=== PATIENT | female | born 1990 | race Caucasian/White ===

== ENCOUNTER 2016-10-06 03:47 | Emergency (ER) | payer OTHER ==
[~2016-10-06] VITALS: Ht 170.2 cm; Wt 106.4 kg
[~2016-10-06 03:47] MED LIST: ACCOLATE20 MG; ACETTAB3 OR; FLEET ENEMA RE; IMPLANON68 MG SC; MAG CITRATE PO; MIRALAX3350 N1 PO; NO; NO HOME MEDS; OVRAL OR; PENICILLN VK500 MG OR; SM GLYCERIN1.5 GM RE; ULTRAM50 M1 PO; [UNRECOGNIZED DRUG - OTHER] OR
[2016-10-06] MEDS ORDERED: NAPROSYN500 MG PO (08:07)
[2016-10-06 08:21] VITALS: BP 134/86
== END 2016-10-06 08:25 | disposition home or self-care (01) | DRG 74 ==
LOC: ED 03:47
DX: G62.9 Polyneuropathy, unspecified (principal)

== ENCOUNTER 2017-06-09 17:11 | Emergency (ER) | payer OTHER ==
[~2017-06-09] VITALS: Ht 170.2 cm; Wt 100.0 kg
[~2017-06-09 17:11] MED LIST changes: +NAPROSYN500 MG PO
[2017-06-09] MEDS ORDERED: ZOFRAN ODT4 MG PO (18:02)
[2017-06-09] MEDS ORDERED: TRAMADOL HYDROC50 MG PO (18:02)
[2017-06-09] MEDS ORDERED: AUGMENTIN875TAB PO (18:07)
[2017-06-09] MEDS ORDERED: FLONASE AL50 MCG/ACT (18:07)
[2017-06-09 18:20] VITALS: BP 141/97
== END 2017-06-09 18:24 | disposition home or self-care (01) | DRG 153 ==
LOC: ED 17:11
DX: J01.20 Acute ethmoidal sinusitis, unspecified (principal); R11.0 Nausea; R42 Dizziness and giddiness; R51 Headache

== ENCOUNTER 2017-07-19 06:57 | Emergency (ER) | payer MEDICAID ==
[~2017-07-19] VITALS: Ht 170.2 cm; Wt 100.0 kg
[~2017-07-19 06:57] MED LIST changes: +AUGMENTIN875TAB PO; +FLONASE AL50 MCG/ACT; +TRAMADOL HYDROC50 MG PO; +ZOFRAN ODT4 MG PO
[2017-07-19 07:51] LABS: INFLUENZA A NONE DETECTED (NONE DETECT); INFLUENZA B POSITIVE (NONE DETECT)
[2017-07-19] MEDS ORDERED: TAM75CAP PO ×2 (07:58→17:19)
[2017-07-19 08:02] VITALS: BP 122/73
== END 2017-07-19 08:10 | disposition home or self-care (01) | DRG 153 ==
LOC: ED 06:57
PROVIDERS: Emergency Medicine
DX: J11.1 Influenza due to unidentified influenza virus with other respiratory manifestations (principal); J02.9 Acute pharyngitis, unspecified; R09.81 Nasal congestion

== ENCOUNTER 2017-12-02 16:14 | Emergency (ER) | payer OTHER ==
[~2017-12-02] VITALS: Ht 170.2 cm; Wt 100.0 kg
[~2017-12-02 16:14] MED LIST changes: +TAM75CAP PO
[2017-12-02] MEDS ORDERED: CIPROFLOXACN0.3 % OD (17:07)
[2017-12-02 17:10] VITALS: BP 139/84
== END 2017-12-02 17:10 | disposition home or self-care (01) | DRG 125 ==
LOC: ED 16:14
DX: S05.01XA Injury of conjunctiva and corneal abrasion without foreign body, right eye, initial encounter (principal); W50.0XXA Accidental hit or strike by another person, initial encounter; Y93.F9 Activity, other caregiving; Y92.009 Unspecified place in unspecified non-institutional (private) residence as the place of occurrence of the external cause

== ENCOUNTER 2018-01-08 06:09 | Emergency (ER) | payer OTHER ==
[~2018-01-08] VITALS: Ht 170.2 cm; Wt 106.4 kg
[~2018-01-08 06:09] MED LIST changes: +CIPROFLOXACN0.3 % OD
[2018-01-08] MEDS ORDERED: ULTRAM50 M1 PO (06:45)
[2018-01-08] MEDS ORDERED: FLEXERIL PO (06:45)
[2018-01-08 06:59] VITALS: BP 125/78
== END 2018-01-08 07:09 | disposition home or self-care (01) | DRG 563 ==
LOC: ED 06:09
DX: S83.92XA Sprain of unspecified site of left knee, initial encounter (principal); M25.562 Pain in left knee

== ENCOUNTER 2018-07-17 10:12 | Emergency (ER) | payer SELFPAY ==
[~2018-07-17] VITALS: Ht 170.2 cm; Wt 104.2 kg
[~2018-07-17 10:12] MED LIST changes: +FLEXERIL PO
[2018-07-17] MEDS ORDERED: AUGMENTIN875TAB PO (11:48)
[2018-07-17] MEDS ORDERED: OFLOXACIN0.3 % OD (11:48)
[2018-07-17 11:52] VITALS: BP 130/80
== END 2018-07-17 12:01 | disposition home or self-care (01) | DRG 125 ==
LOC: ED 10:12
DX: S05.01XA Injury of conjunctiva and corneal abrasion without foreign body, right eye, initial encounter (principal); W55.03XA Scratched by cat, initial encounter

== ENCOUNTER 2018-09-05 07:23 | Emergency (ER) | payer MEDICAID ==
[~2018-09-05] VITALS: Ht 170.2 cm; Wt 100.0 kg
[~2018-09-05 07:23] MED LIST changes: +OFLOXACIN0.3 % OD
[2018-09-05] MEDS ORDERED: AMOXICILLIN500 MG PO (08:32)
[2018-09-05] MEDS ORDERED: TORADOL PO (08:32)
[2018-09-05 08:48] VITALS: BP 114/68
== END 2018-09-05 08:52 | disposition home or self-care (01) ==
LOC: ED 07:23
DX: J02.0 Streptococcal pharyngitis (principal)

== ENCOUNTER 2018-09-08 14:00 | Emergency (ER) | payer MEDICAID ==
[~2018-09-08] VITALS: Ht 170.2 cm; Wt 100.0 kg
[~2018-09-08 14:00] MED LIST changes: +AMOXICILLIN500 MG PO; +TORADOL PO
[2018-09-08] MEDS ORDERED: AUGMENTIN875TAB PO (15:08)
[2018-09-08 15:17] VITALS: BP 145/92
== END 2018-09-08 15:20 | disposition home or self-care (01) ==
LOC: ED 14:00
DX: J02.0 Streptococcal pharyngitis (principal); J32.9 Chronic sinusitis, unspecified; R09.81 Nasal congestion; R51 Headache

== ENCOUNTER 2018-09-22 03:38 | Emergency (ER) | payer MEDICAID ==
[~2018-09-22] VITALS: Ht 170.2 cm; Wt 100.0 kg
[2018-09-22 04:35] LABS: HEMATOCRIT 43.7 % (37.0-47.0); HEMOGLOBIN 14.9 g/dl (12.0-16.0); IMMATURE GRANULOCYTES 0.3 % (0.0-5.0); MEAN CELL VOLUME 84.5 fL CALC (80.0-100.0); MEAN CORPUSCULAR HGB 28.8 pG CALC (26.0-32.0); MEAN CORPUSCULAR HGB CONC 34.1 g/L CALC (32.0-36.0); NEUT# 3.04 thou/uL (2.00-7.15); RED BLOOD COUNT 5.17 mill/uL (4.20-5.60); RED CELL DISTRI WIDTH 12.9 % (11.5-15.5)
[2018-09-22 04:43] LABS: ALBUMIN 4.2 g/dL (3.2-5.0); ALKALINE PHOSPHATASE 89 u/l (38-126); ANION GAP 14 (6-22 (CALC)); BILIRUBIN, TOTAL 0.5 mg/dL (0.0-1.4); BUN 16 mg/dL (7-17); BUN/CREATININE RATIO 21 (12-20 (CALC)); CARBON DIOXIDE 24 mmol/l (22-30); CHLORIDE 105 mmol/l (95-108); CREATININE 0.8 mg/dL (0.5-1.0); GFR > 60 ML/MIN (>=60 (CALC)); GFR FOR AFR.AMER. > 60 ML/MIN (>=60 (CALC)); POTASSIUM 4.2 mmol/l (3.5-5.1); SGOT/AST 20 u/l (14-36); SODIUM 138 mmol/l (137-146)
[2018-09-22] MEDS ORDERED: ANUCORT-HC25 MG RE (06:11)
[2018-09-22] MEDS ORDERED: COLACE100 MG PO (06:15)
[2018-09-22 06:20] VITALS: BP 120/70
== END 2018-09-22 06:20 | disposition home or self-care (01) ==
LOC: ED 03:38
PROVIDERS: Emergency Medicine
DX: K92.1 Melena (principal)

== ENCOUNTER 2020-03-31 08:47 | Emergency (ER) | payer OTHER ==
[~2020-03-31] VITALS: Ht 170.2 cm; Wt 110.0 kg
[~2020-03-31 08:47] MED LIST changes: +ANUCORT-HC25 MG RE; +COLACE100 MG PO
[2020-03-31 09:32] LABS: HEMATOCRIT 43.9 % (37.0-47.0); HEMOGLOBIN 14.4 g/dl (12.0-16.0); IMMATURE GRANULOCYTES 0.4 % (0.0-5.0); MEAN CELL VOLUME 85.9 fL CALC (80.0-100.0); MEAN CORPUSCULAR HGB 28.2 pG CALC (26.0-32.0); MEAN CORPUSCULAR HGB CONC 32.8 g/dL CAL (32.0-36.0); NEUT# 3.25 thou/uL (2.00-7.15); RED BLOOD COUNT 5.11 mill/uL (4.20-5.60); RED CELL DISTRI WIDTH 12.6 % (11.5-15.5)
[2020-03-31 09:47] LABS: ALBUMIN 4.3 g/dL (3.2-5.0); ALKALINE PHOSPHATASE 80 u/l (38-126); ANION GAP 11 (6-22 (CALC)); BUN 11 mg/dL (7-17); BUN/CREATININE RATIO 13 (12-20 (CALC)); CARBON DIOXIDE 24 mmol/l (22-30); CHLORIDE 104 mmol/l (95-108); CREATININE 0.8 mg/dL (0.5-1.0); GFR > 60 ML/MIN (>=60 (CALC)); GFR FOR AFR.AMER. > 60 ML/MIN (>=60 (CALC)); POTASSIUM 4.3 mmol/l (3.5-5.1); SGOT/AST 25 u/l (14-36); SODIUM 136 mmol/l (137-146); TOTAL PROTEIN 6.9 g/dL (6.3-8.2)
[2020-03-31 09:51] LABS: BILIRUBIN, TOTAL 0.9 mg/dL (0.0-1.4)
[2020-03-31] MEDS ORDERED: AMOXICILLIN500 MG PO (11:18)
[2020-03-31 11:22] VITALS: BP 137/68
== END 2020-03-31 11:33 | disposition home or self-care (01) ==
LOC: ED 08:47
PROVIDERS: Emergency Medicine
DX: J02.0 Streptococcal pharyngitis (principal); Z20.828 Contact with and (suspected) exposure to other viral communicable diseases

== ENCOUNTER 2020-05-09 01:31 | Emergency (ER) | payer OTHER ==
[~2020-05-09] VITALS: Ht 172.7 cm; Wt 111.8 kg
[2020-05-09 02:25] LABS: HEMATOCRIT 43.6 % (37.0-47.0); HEMOGLOBIN 14.6 g/dl (12.0-16.0); IMMATURE GRANULOCYTES 0.2 % (0.0-5.0); MEAN CORPUSCULAR HGB 29.1 pG CALC (26.0-32.0); MEAN CORPUSCULAR HGB CONC 33.5 g/dL CAL (32.0-36.0); NEUT# 2.42 thou/uL (2.00-7.15); RED BLOOD COUNT 5.01 mill/uL (4.20-5.60); RED CELL DISTRI WIDTH 12.7 % (11.5-15.5)
[2020-05-09 02:43] LABS: ALBUMIN 4.1 g/dL (3.2-5.0); ALKALINE PHOSPHATASE 89 u/l (38-126); ANION GAP 12 (6-22 (CALC)); BUN 13 mg/dL (7-17); BUN/CREATININE RATIO 16 (12-20 (CALC)); CARBON DIOXIDE 25 mmol/l (22-30); CHLORIDE 106 mmol/l (95-108); CREATININE 0.9 mg/dL (0.5-1.0); GFR > 60 ML/MIN (>=60 (CALC)); GFR FOR AFR.AMER. > 60 ML/MIN (>=60 (CALC)); POTASSIUM 3.8 mmol/l (3.5-5.1); SGOT/AST 21 u/l (14-36); SODIUM 139 mmol/l (137-146); TOTAL PROTEIN 6.9 g/dL (6.3-8.2)
[2020-05-09 02:44] LABS: BILIRUBIN, TOTAL 0.3 mg/dL (0.0-1.4)
[2020-05-09] MEDS ORDERED: VOLTAREN75 MG PO (02:50)
[2020-05-09 03:13] VITALS: BP 147/60
== END 2020-05-09 03:13 | disposition home or self-care (01) ==
LOC: ED 01:31
PROVIDERS: Family Medicine
DX: R07.89 Other chest pain (principal)

== ENCOUNTER 2020-07-10 15:53 | Emergency (ER) | payer OTHER ==
[~2020-07-10] VITALS: Ht 170.2 cm; Wt 109.0 kg
[~2020-07-10 15:53] MED LIST changes: +VOLTAREN75 MG PO
[2020-07-10] MEDS ORDERED: TESSALON PER100 MG PO (17:10)
[2020-07-10] MEDS ORDERED: AMOXICILLIN875 MG PO (17:10)
[2020-07-10 17:19] VITALS: BP 131/86
== END 2020-07-10 17:19 | disposition home or self-care (01) ==
LOC: ED 15:53
DX: J02.0 Streptococcal pharyngitis (principal); Z20.828 Contact with and (suspected) exposure to other viral communicable diseases

== ENCOUNTER 2020-08-03 06:41 | Emergency (ER) | payer OTHER ==
[~2020-08-03] VITALS: Ht 170.2 cm; Wt 103.0 kg
[~2020-08-03 06:41] MED LIST changes: +AMOXICILLIN875 MG PO; +TESSALON PER100 MG PO
[2020-08-03 07:44] LABS: HEMOGLOBIN 14.7 g/dl (12.0-16.0); IMMATURE GRANULOCYTES 0.4 % (0.0-5.0); MEAN CELL VOLUME 85.4 fL CALC (80.0-100.0); MEAN CORPUSCULAR HGB 28.5 pG CALC (26.0-32.0); MEAN CORPUSCULAR HGB CONC 33.4 g/dL CAL (32.0-36.0); NEUT# 2.86 thou/uL (2.00-7.15); RED BLOOD COUNT 5.15 mill/uL (4.20-5.60); RED CELL DISTRI WIDTH 12.4 % (11.5-15.5)
[2020-08-03 07:45] LABS: URINE BILIRUBIN - DIPSTICK NEGATIVE (NEGATIVE); URINE BLOOD DIPSTICK NEGATIVE (NEGATIVE); URINE COLOR YELLOW; URINE GLUCOSE - DIPSTICK NEGATIVE (NEGATIVE); URINE KETONE NEGATIVE (NEGATIVE); URINE LEUK ESTERASE NEGATIVE (NEGATIVE); URINE NITRITE - DIPSTICK NEGATIVE (Negative); URINE PROTEIN - DIPSTICK NEGATIVE (NEG-TRACE); URINE SPECIFIC GRAVITY 1.025; URINE UROBILINOGEN - DIPSTICK 0.2 E.U./dL (0.2)
[2020-08-03 08:05] LABS: ANION GAP 12 (6-22 (CALC)); BUN 13 mg/dL (7-17); BUN/CREATININE RATIO 15 (12-20 (CALC)); CARBON DIOXIDE 22 mmol/l (22-30); CHLORIDE 105 mmol/l (95-108); CREATININE 0.8 mg/dL (0.5-1.0); GFR > 60 ML/MIN (>=60 (CALC)); GFR FOR AFR.AMER. > 60 ML/MIN (>=60 (CALC)); POTASSIUM 4.5 mmol/l (3.5-5.1); SODIUM 135 mmol/l (137-146)
[2020-08-03 08:55] VITALS: BP 117/68
== END 2020-08-03 08:55 | disposition home or self-care (01) ==
LOC: ED 06:41
PROVIDERS: Family Medicine
DX: R07.9 Chest pain, unspecified (principal); E66.3 Overweight

== ENCOUNTER 2020-09-27 21:21 | Emergency (ER) | payer OTHER ==
[~2020-09-27] VITALS: Ht 170.2 cm; Wt 104.0 kg
[2020-09-27 21:56] LABS: HEMATOCRIT 42.4 % (37.0-47.0); HEMOGLOBIN 14.3 g/dl (12.0-16.0); IMMATURE GRANULOCYTES 0.4 % (0.0-5.0); MEAN CELL VOLUME 85.7 fL CALC (80.0-100.0); MEAN CORPUSCULAR HGB 28.9 pG CALC (26.0-32.0); MEAN CORPUSCULAR HGB CONC 33.7 g/dL CAL (32.0-36.0); NEUT# 2.51 thou/uL (2.00-7.15); RED BLOOD COUNT 4.95 mill/uL (4.20-5.60); RED CELL DISTRI WIDTH 12.8 % (11.5-15.5)
[2020-09-27 22:00] LABS: URINE BILIRUBIN - DIPSTICK NEGATIVE (NEGATIVE); URINE BLOOD DIPSTICK NEGATIVE (NEGATIVE); URINE COLOR YELLOW; URINE GLUCOSE - DIPSTICK NEGATIVE (NEGATIVE); URINE KETONE NEGATIVE (NEGATIVE); URINE LEUK ESTERASE NEGATIVE (NEGATIVE); URINE NITRITE - DIPSTICK NEGATIVE (Negative); URINE PROTEIN - DIPSTICK NEGATIVE (NEG-TRACE); URINE SPECIFIC GRAVITY 1.025
[2020-09-27 22:14] LABS: ALBUMIN 4.4 g/dL (3.2-5.0); ALKALINE PHOSPHATASE 84 u/l (38-126); AMYLASE 78 u/l (30-110); ANION GAP 12 (6-22 (CALC)); BILIRUBIN, TOTAL 0.6 mg/dL (0.0-1.4); BUN 13 mg/dL (7-17); BUN/CREATININE RATIO 15 (12-20 (CALC)); CARBON DIOXIDE 27 mmol/l (22-30); CHLORIDE 103 mmol/l (95-108); CREATININE 0.9 mg/dL (0.5-1.0); GFR > 60 ML/MIN (>=60 (CALC)); GFR FOR AFR.AMER. > 60 ML/MIN (>=60 (CALC)); LIPASE 92 u/l (23-300); SGOT/AST 23 u/l (14-36); SODIUM 138 mmol/l (137-146); TOTAL PROTEIN 7.4 g/dL (6.3-8.2)
[2020-09-27] MEDS ORDERED: PEPCID20 MG PO (22:25)
[2020-09-27 22:30] VITALS: BP 121/70
== END 2020-09-27 22:41 | disposition home or self-care (01) ==
LOC: ED 21:21
PROVIDERS: Family Medicine
DX: K29.70 Gastritis, unspecified, without bleeding (principal)

== ENCOUNTER 2020-11-22 18:31 | Emergency (ER) | payer OTHER ==
[~2020-11-22] VITALS: Ht 170.2 cm; Wt 105.0 kg
[~2020-11-22 18:31] MED LIST changes: +PEPCID20 MG PO
[2020-11-22] MEDS ORDERED: AMOXICILLIN875 MG PO (20:01)
[2020-11-22 20:30] VITALS: BP 141/87
== END 2020-11-22 20:30 | disposition home or self-care (01) ==
LOC: ED 18:31
DX: J02.0 Streptococcal pharyngitis (principal)

== ENCOUNTER 2021-04-25 15:27 | Emergency (ER) | payer OTHER ==
[~2021-04-25] VITALS: Ht 170.2 cm; Wt 110.0 kg
[2021-04-25 16:05] LABS: URINE BILIRUBIN - DIPSTICK NEGATIVE (NEGATIVE); URINE BLOOD DIPSTICK NEGATIVE (NEGATIVE); URINE COLOR YELLOW; URINE GLUCOSE - DIPSTICK 100 mg/dL (NEGATIVE); URINE KETONE NEGATIVE (NEGATIVE); URINE LEUK ESTERASE NEGATIVE (Negative); URINE NITRITE - DIPSTICK NEGATIVE (Negative); URINE PROTEIN - DIPSTICK NEGATIVE (NEG-TRACE); URINE UROBILINOGEN - DIPSTICK 0.2 E.U./dL (0.2)
[2021-04-25 16:08] LABS: URINE CLARITY HAZY
[2021-04-25] MEDS ORDERED: ZITHROMAX250 MG PO (17:17)
[2021-04-25] MEDS ORDERED: TESSALON PERLE100 MG PO (17:22)
[2021-04-25 17:24] VITALS: BP 153/104
== END 2021-04-25 17:30 | disposition home or self-care (01) ==
LOC: ED 15:27
DX: R05.9 Cough, unspecified (principal); J02.9 Acute pharyngitis, unspecified; Z20.822 Contact with and (suspected) exposure to COVID-19

== ENCOUNTER 2021-06-22 10:37 | Emergency (ER) | payer OTHER ==
[~2021-06-22] VITALS: Ht 170.2 cm; Wt 104.1 kg
[~2021-06-22 10:37] MED LIST changes: +TESSALON PERLE100 MG PO; +ZITHROMAX250 MG PO
[2021-06-22] MEDS ORDERED: ULTRAM50 MG PO (12:48)
[2021-06-22 12:59] VITALS: BP 132/59
== END 2021-06-22 12:59 | disposition home or self-care (01) | DRG 563 ==
LOC: ED 10:37
DX: S43.402A Unspecified sprain of left shoulder joint, initial encounter (principal); V43.52XA Car driver injured in collision with other type car in traffic accident, initial encounter

== ENCOUNTER 2021-07-27 22:56 | Emergency (ER) | payer OTHER ==
[~2021-07-27] VITALS: Ht 170.2 cm; Wt 109.0 kg
[~2021-07-27 22:56] MED LIST changes: +ULTRAM50 MG PO
[2021-07-28] VITALS: BP 141/87
[2021-07-28 00:31] LABS: HEMATOCRIT 42.2 % (37.0-47.0); IMMATURE GRANULOCYTES 0.5 % (0.0-5.0); MEAN CELL VOLUME 83.9 fL CALC (80.0-100.0); MEAN CORPUSCULAR HGB 27.8 pG CALC (26.0-32.0); MEAN CORPUSCULAR HGB CONC 33.2 g/dL CAL (32.0-36.0); NEUT# 1.9 thou/uL (2.00-7.15); RED BLOOD COUNT 5.03 mill/uL (4.20-5.60); RED CELL DISTRI WIDTH 13.3 % (11.5-15.5)
[2021-07-28] MEDS ORDERED: TESSALON PERLE100 MG PO (00:55)
== END 2021-07-28 01:05 | disposition home or self-care (01) ==
LOC: ED 22:56
PROVIDERS: Family Medicine
DX: B34.9 Viral infection, unspecified (principal); Z20.822 Contact with and (suspected) exposure to COVID-19

== ENCOUNTER 2021-08-02 11:48 | Emergency (ER) | payer OTHER ==
[~2021-08-02] VITALS: Ht 170.2 cm; Wt 100.0 kg
[2021-08-02] MEDS ORDERED: PROAIR HFA108 MCG/AC PO (13:30)
[2021-08-02] MEDS ORDERED: PREDNISONE50 MG PO (13:30)
[2021-08-02] MEDS ORDERED: DOXYCYCL HYC100 M4 PO (13:30)
[2021-08-02 13:49] VITALS: BP 156/84
== END 2021-08-02 13:49 | disposition home or self-care (01) ==
LOC: ED 11:48
DX: J40 Bronchitis, not specified as acute or chronic (principal); Z20.822 Contact with and (suspected) exposure to COVID-19

== ENCOUNTER 2022-03-03 09:42 | Emergency (ER) | payer OTHER ==
[2022-03-03] VITALS (7 sets, daily range): BP systolic 123–173; BP diastolic 68–94
[~2022-03-03] VITALS: Ht 170.2 cm; Wt 104.5 kg
[~2022-03-03 09:42] MED LIST changes: +DOXYCYCL HYC100 M4 PO; +IMODIUM2 MG PO; +PREDNISONE50 MG PO; +PROAIR HFA108 MCG/AC PO; +PROMETHAZINE HY25 M1 PO
[2022-03-03] MEDS ORDERED: ZPAK PO (10:24)
== END 2022-03-03 10:56 | disposition home or self-care (01) ==
LOC: ED 09:42
DX: R52 Pain, unspecified (principal); E66.9 Obesity, unspecified; Z20.822 Contact with and (suspected) exposure to COVID-19

== ENCOUNTER 2022-09-06 07:20 | Emergency (ER) | payer OTHER ==
[~2022-09-06] VITALS: Ht 170.2 cm; Wt 110.0 kg
[~2022-09-06 07:20] MED LIST changes: +ZPAK PO
[2022-09-06 07:27] VITALS: BP 123/91
[2022-09-06 07:29] VITALS: BP 126/84
[2022-09-06 07:30] VITALS: BP 125/84
[2022-09-06] MEDS ORDERED: GENTAMICIN SULF5 ML OS (07:41)
[2022-09-06 07:45] VITALS: BP 121/86; BP 125/84
== END 2022-09-06 07:53 | disposition home or self-care (01) ==
LOC: ED 07:20
DX: H00.014 Hordeolum externum left upper eyelid (principal)

== ENCOUNTER 2022-09-09 21:13 | Emergency (ER) | payer OTHER ==
[~2022-09-09] VITALS: Ht 170.2 cm; Wt 109.5 kg
[~2022-09-09 21:13] MED LIST changes: +GENTAMICIN SULF5 ML OS
[2022-09-10] VITALS (10 sets, daily range): BP systolic 108–158; BP diastolic 68–104
[2022-09-10 01:01] LABS: BASO% 0.4 % (0-3); EOS% 0.6 % (0-8); HEMATOCRIT 45.2 % (37.0-47.0); HEMOGLOBIN 15.1 g/dl (12.0-16.0); IMMATURE GRANULOCYTES 0.2 % (0.0-5.0); LYMPH% 19.3 % (15-41); MEAN CELL VOLUME 85.8 fL CALC (80.0-100.0); MEAN CORPUSCULAR HGB 28.7 pG CALC (26.0-32.0); MEAN CORPUSCULAR HGB CONC 33.4 g/dL CAL (32.0-36.0); MONO% 11.5 % (2-13); NEUT# 3.67 thou/uL (2.00-7.15); RED BLOOD COUNT 5.27 mill/uL (4.20-5.60); RED CELL DISTRI WIDTH 12.8 % (11.5-15.5)
[2022-09-10 01:04] LABS: URINE BILIRUBIN - DIPSTICK NEGATIVE (NEGATIVE); URINE BLOOD DIPSTICK NEGATIVE (NEGATIVE); URINE COLOR YELLOW; URINE GLUCOSE - DIPSTICK NEGATIVE (NEGATIVE); URINE KETONE NEGATIVE (NEGATIVE); URINE LEUK ESTERASE NEGATIVE (NEGATIVE); URINE PROTEIN - DIPSTICK NEGATIVE (NEG-TRACE); URINE SPECIFIC GRAVITY >=1.030
[2022-09-10 01:05] LABS: ALBUMIN 4.6 g/dL (3.2-5.0); ALKALINE PHOSPHATASE 77 u/l (38-126); ANION GAP 15 (6-22 (CALC)); BUN 10 mg/dL (7-17); BUN/CREATININE RATIO 12 (12-20 (CALC)); CARBON DIOXIDE 23 mmol/l (22-30); CHLORIDE 106 mmol/l (95-108); CREATININE 0.9 mg/dL (0.5-1.0); GFR FOR AFR.AMER. > 60 ML/MIN (>=60 (CALC)); GFR OTHER RACES > 60 ML/MIN (>=60 (CALC)); LIPASE 54 u/l (23-300); SGOT/AST 33 u/l (14-36); SODIUM 139 mmol/l (137-146); TOTAL PROTEIN 7.8 g/dL (6.3-8.2)
[2022-09-10 01:08] LABS: BILIRUBIN, TOTAL 0.6 mg/dL (0.02-1.3)
[2022-09-10 01:10] LABS: URINE NITRITE - DIPSTICK NEGATIVE (Negative)
[2022-09-10 01:15] LABS: URINE BACTERIA MODERATE hpf; URINE MUCUS FEW hpf (NONE-FEW); URINE SQUAMOUS EPITHELIAL CELL MODERATE EPI/hpf (0-FEW)
[2022-09-10] MEDS ORDERED: OMNICEF300 M1 PO (02:35)
== END 2022-09-10 03:09 | disposition home or self-care (01) ==
LOC: ED 21:13
PROVIDERS: Emergency Medicine
DX: N39.0 Urinary tract infection, site not specified (principal); B96.89 Other specified bacterial agents as the cause of diseases classified elsewhere
CPT/HCPCS: Q9967

== ENCOUNTER 2022-11-03 06:37 | Emergency (ER) | payer OTHER ==
[~2022-11-03 06:37] MED LIST changes: +OMNICEF300 M1 PO
[2022-11-03 09:00] VITALS: BP 102/69
== END 2022-11-03 09:00 | disposition home or self-care (01) ==
LOC: ED 08:01
DX: J06.9 Acute upper respiratory infection, unspecified (principal); R51.9 Headache, unspecified; Z20.822 Contact with and (suspected) exposure to COVID-19

== ENCOUNTER 2022-11-16 11:03 | Emergency (ER) | payer OTHER ==
[~2022-11-16] VITALS: Ht 170.2 cm; Wt 113.0 kg
[2022-11-16] MEDS ORDERED: PENICILLN VK500 MG PO (12:16)
[2022-11-16] MEDS ORDERED: NAPROXEN500 MG PO (12:20)
[2022-11-16] MEDS ORDERED: TRAMADOL HYDROC50 M1 PO (12:20)
[2022-11-16 12:24] VITALS: BP 141/96
== END 2022-11-16 12:33 | disposition home or self-care (01) ==
LOC: ED 11:03
DX: K04.7 Periapical abscess without sinus (principal)

== ENCOUNTER 2023-02-11 12:10 | Emergency (ER) | payer SELFPAY ==
[~2023-02-11] VITALS: Ht 170.2 cm; Wt 109.1 kg
[~2023-02-11 12:10] MED LIST changes: +NAPROXEN500 MG PO; +PENICILLN VK500 MG PO; +TRAMADOL HYDROC50 M1 PO
[2023-02-11 12:36] VITALS: BP 134/74
[2023-02-11] MEDS ORDERED: IMITREX100 MG PO (12:41)
[2023-02-11] MEDS ORDERED: AMOX/K CLAV875 M1 PO (12:57)
[2023-02-11] MEDS ORDERED: NAPROXEN500 MG PO (13:24)
[2023-02-11] MEDS ORDERED: METHOCARBAMOL500 MG PO (13:24)
[2023-02-11 13:37] VITALS: BP 134/74
== END 2023-02-11 13:50 | disposition home or self-care (01) | DRG 556 ==
LOC: ED 12:10
DX: M25.562 Pain in left knee (principal)

== ENCOUNTER 2023-02-27 09:45 | Emergency (ER) | payer MEDICAID ==
[~2023-02-27] VITALS: Ht 170.2 cm; Wt 106.0 kg
[~2023-02-27 09:45] MED LIST changes: +AMOX/K CLAV875 M1 PO; +IMITREX100 MG PO; +METHOCARBAMOL500 MG PO
[2023-02-27 10:05] VITALS: BP 133/80
[2023-02-27 10:17] LABS: BASO% 0.5 % (0-3); HEMATOCRIT 45.7 % (37.0-47.0); HEMOGLOBIN 15.5 g/dl (12.0-16.0); IMMATURE GRANULOCYTES 0.2 % (0.0-5.0); LYMPH% 32.6 % (15-41); MEAN CELL VOLUME 85.1 fL CALC (80.0-100.0); MEAN CORPUSCULAR HGB 28.9 pG CALC (26.0-32.0); MEAN CORPUSCULAR HGB CONC 33.9 g/dL CAL (32.0-36.0); MONO% 9.7 % (2-13); NEUT# 2.3 thou/uL (2.00-7.15); RED BLOOD COUNT 5.37 mill/uL (4.20-5.60); RED CELL DISTRI WIDTH 12.5 % (11.5-15.5)
[2023-02-27 10:29] LABS: URINE BILIRUBIN - DIPSTICK Negative (NEGATIVE); URINE BLOOD DIPSTICK Large (NEGATIVE); URINE GLUCOSE - DIPSTICK Negative (NEGATIVE); URINE KETONE Negative (NEGATIVE); URINE LEUK ESTERASE Negative (NEGATIVE); URINE NITRITE - DIPSTICK Negative (Negative); URINE PH 5.5 (4.5-8.0); URINE PROTEIN - DIPSTICK Trace mg/dL (NEG-TRACE); URINE SPECIFIC GRAVITY 1.025; URINE UROBILINOGEN - DIPSTICK 0.2 E.U./dL (0.2)
[2023-02-27 10:31] VITALS: BP 116/61
[2023-02-27 10:31] LABS: URINE COLOR Yellow
[2023-02-27 10:32] LABS: ALBUMIN 4.4 g/dL (3.2-5.0); ALKALINE PHOSPHATASE 73 u/l (38-126); ANION GAP 13 (6-22 (CALC)); BILIRUBIN, TOTAL 0.7 mg/dL (0.02-1.3); BUN 11 mg/dL (7-17); BUN/CREATININE RATIO 11 (12-20 (CALC)); CARBON DIOXIDE 24 mmol/l (22-30); CHLORIDE 107 mmol/l (95-108); GFR FOR AFR.AMER. > 60 ML/MIN (>=60 (CALC)); GFR OTHER RACES > 60 ML/MIN (>=60 (CALC)); LIPASE 57 u/l (23-300); POTASSIUM 3.9 mmol/l (3.5-5.1); SGOT/AST 31 u/l (14-36); SODIUM 140 mmol/l (137-146); TOTAL PROTEIN 7.9 g/dL (6.3-8.2)
[2023-02-27 10:43] LABS: URINE SQUAMOUS EPITHELIAL CELL FEW EPI/hpf (0-FEW)
[2023-02-27] MEDS ORDERED: OMNI-PAC300 MG PO (10:47)
[2023-02-27 11:00] VITALS: BP 106/68
== END 2023-02-27 11:10 | disposition home or self-care (01) ==
LOC: ED 09:45
PROVIDERS: Family Medicine
DX: R31.9 Hematuria, unspecified (principal); E66.9 Obesity, unspecified

== ENCOUNTER 2023-07-11 14:11 | Emergency (ER) | payer OTHER ==
[~2023-07-11] VITALS: Ht 170.2 cm; Wt 104.3 kg
[2023-07-11] VITALS (8 sets, daily range): BP systolic 108–128; BP diastolic 56–98
[~2023-07-11 14:11] MED LIST changes: +OMNI-PAC300 MG PO
[2023-07-11 16:00] LABS: BASO% 0.4 % (0-3); EOS% 0.8 % (0-8); HEMATOCRIT 41.7 % (37.0-47.0); IMMATURE GRANULOCYTES 0.2 % (0.0-5.0); LYMPH% 16.5 % (15-41); MEAN CELL VOLUME 82.7 fL CALC (80.0-100.0); MEAN CORPUSCULAR HGB 27.8 pG CALC (26.0-32.0); MEAN CORPUSCULAR HGB CONC 33.6 g/dL CAL (32.0-36.0); MONO% 8.4 % (2-13); NEUT# 6.28 thou/uL (2.00-7.15); NEUT% 73.7 % (42-76); RED BLOOD COUNT 5.04 mill/uL (4.20-5.60); RED CELL DISTRI WIDTH 14.3 % (11.5-15.5)
[2023-07-11 16:25] LABS: ALBUMIN 4.1 g/dL (3.2-5.0); ALKALINE PHOSPHATASE 81 u/l (38-126); ANION GAP 17 (6-22 (CALC)); BUN 12 mg/dL (7-17); BUN/CREATININE RATIO 14 (12-20 (CALC)); CARBON DIOXIDE 21 mmol/l (22-30); CHLORIDE 104 mmol/l (95-108); CREATININE 0.9 mg/dL (0.5-1.0); GFR FOR AFR.AMER. > 60 ML/MIN (>=60 (CALC)); GFR OTHER RACES > 60 ML/MIN (>=60 (CALC)); POTASSIUM 3.9 mmol/l (3.5-5.1); SGOT/AST 25 u/l (14-36); SODIUM 137 mmol/l (137-146); TOTAL PROTEIN 7.2 g/dL (6.3-8.2)
[2023-07-11 16:26] LABS: BILIRUBIN, TOTAL 0.4 mg/dL (0.02-1.3)
[2023-07-11 16:36] LABS: URINE BILIRUBIN - DIPSTICK Negative (NEGATIVE); URINE BLOOD DIPSTICK Large (NEGATIVE); URINE GLUCOSE - DIPSTICK Negative (NEGATIVE); URINE KETONE Negative (NEGATIVE); URINE NITRITE - DIPSTICK Negative (Negative); URINE PROTEIN - DIPSTICK 30 mg/dL (NEG-TRACE); URINE SPECIFIC GRAVITY >=1.030
[2023-07-11 16:38] LABS: URINE COLOR Yellow; URINE LEUK ESTERASE Small (NEGATIVE)
[2023-07-11 16:53] LABS: URINE AMORPH SEDIMENT MODERATE hpf (NONE-FEW); URINE SQUAMOUS EPITHELIAL CELL MANY EPI/hpf (0-FEW)
[2023-07-11] MEDS ORDERED: KEFLEX500 MG PO (17:17)
== END 2023-07-11 17:28 | disposition home or self-care (01) ==
LOC: ED 14:11
PROVIDERS: Nurse Practitioner
DX: N39.0 Urinary tract infection, site not specified (principal); Z20.822 Contact with and (suspected) exposure to COVID-19

== ENCOUNTER 2024-03-14 08:57 | Emergency (ER) | payer OTHER ==
[~2024-03-14] VITALS: Ht 170.2 cm; Wt 112.4 kg
[~2024-03-14 08:57] MED LIST changes: +CHERATUSSIN PO; +KEFLEX500 MG PO
[2024-03-14] MEDS ORDERED: PAXLOVID PO (10:14)
[2024-03-14 10:19] VITALS: BP 147/89
== END 2024-03-14 10:24 | disposition home or self-care (01) ==
LOC: ED 08:57
DX: U07.1 COVID-19 (principal); R05.9 Cough, unspecified; R52 Pain, unspecified

== ENCOUNTER 2024-07-22 08:13 | Emergency (ER) | payer OTHER ==
[~2024-07-22] VITALS: Ht 170.2 cm; Wt 104.0 kg
[~2024-07-22 08:13] MED LIST changes: +ALBUTEROL SUL0.083 % IN; +DOXY-CAPS100 MG PO; +IBUPROFEN600 MG PO; +NEBULIZER PO; +PAXLOVID PO; +VENTOLIN HFA108 MCG PO
[2024-07-22 08:18] VITALS: BP 132/80
[2024-07-22] MEDS ORDERED: MUPIROCIN2 % EX (08:29)
[2024-07-22] MEDS ORDERED: AMOX/K CLAV875 M1 PO (08:29)
[2024-07-22 08:31] VITALS: BP 116/59
[2024-07-22] MEDS ORDERED: VALACYCLOVIR500 MG PO (08:31)
[2024-07-22 08:36] VITALS: BP 127/78
[2024-07-22 08:39] VITALS: BP 127/78
== END 2024-07-22 08:40 | disposition home or self-care (01) ==
LOC: ED 08:13
DX: L01.00 Impetigo, unspecified (principal)

== ENCOUNTER 2024-08-19 20:21 | Emergency (ER) | payer OTHER ==
[~2024-08-19] VITALS: Ht 170.2 cm; Wt 120.0 kg
[~2024-08-19 20:21] MED LIST changes: +MUPIROCIN2 % EX; +VALACYCLOVIR500 MG PO
[2024-08-19 22:46] LABS: BASO% 0.8 % (0-3); HEMATOCRIT 41.4 % (37.0-47.0); HEMOGLOBIN 13.8 g/dl (12.0-16.0); LYMPH% 33.1 % (15-41); MEAN CELL VOLUME 84.7 fL CALC (80.0-100.0); MEAN CORPUSCULAR HGB 28.2 pG CALC (26.0-32.0); MEAN CORPUSCULAR HGB CONC 33.3 g/dL CAL (32.0-36.0); MONO% 14.7 % (2-13); NEUT# 2.98 thou/uL (2.00-7.15); NEUT% 49.4 % (42-76); RED BLOOD COUNT 4.89 mill/uL (4.20-5.60); RED CELL DISTRI WIDTH 13.1 % (11.5-15.5)
[2024-08-19 22:58] LABS: ALBUMIN 3.8 g/dL (3.2-5.0); BILIRUBIN, TOTAL 0.3 mg/dL (0.02-1.3); CREATININE 0.9 mg/dL (0.5-1.0); POTASSIUM 4.2 mmol/l (3.5-5.1); TOTAL PROTEIN 6.5 g/dL (6.3-8.2)
[2024-08-19 23:00] VITALS: BP 136/89
[2024-08-20 00:23] VITALS: BP 129/86
== END 2024-08-20 00:23 | disposition home or self-care (01) ==
LOC: ED 20:21
PROVIDERS: Internal Medicine
DX: K64.8 Other hemorrhoids (principal)

== ENCOUNTER 2024-10-03 14:20 | Emergency (ER) | payer OTHER ==
[~2024-10-03] VITALS: Ht 170.2 cm; Wt 111.0 kg
[2024-10-03] MEDS ORDERED: SERTRALINE50 MG PO (14:42)
[2024-10-03] MEDS ORDERED: SPIRONOLACTONE25 MG PO (14:43)
[2024-10-03] MEDS ORDERED: Pantoprazole Sodium 40 MG VIAL (Protonix) IV ONE (14:55)
[2024-10-03 15:04] VITALS: BP 139/85
[2024-10-03 15:05] LABS: BASO% 0.4 % (0-3); EOS% 1.6 % (0-8); HEMATOCRIT 42.9 % (37.0-47.0); HEMOGLOBIN 14.6 g/dl (12.0-16.0); IMMATURE GRANULOCYTES 0.1 % (0.0-5.0); LYMPH% 28.9 % (15-41); MEAN CELL VOLUME 83.8 fL CALC (80.0-100.0); MEAN CORPUSCULAR HGB 28.5 pG CALC (26.0-32.0); MONO% 12.7 % (2-13); NEUT# 3.93 thou/uL (2.00-7.15); NEUT% 56.3 % (42-76); RED BLOOD COUNT 5.12 mill/uL (4.20-5.60)
[2024-10-03] MEDS ORDERED: ONDANSETRON HCl 4 MG/2 ML SDV IV ONE (15:05)
[2024-10-03 15:15] VITALS: BP 136/87
[2024-10-03 15:22] LABS: ALBUMIN 4.4 g/dL (3.2-5.0); TOTAL PROTEIN 7.5 g/dL (6.3-8.2)
[2024-10-03 15:23] LABS: BILIRUBIN, TOTAL 0.7 mg/dL (0.02-1.3)
[2024-10-03 15:30] VITALS: BP 131/83
[2024-10-03 15:45] VITALS: BP 133/85
[2024-10-03] MEDS ORDERED: PROTONIX40 M2 PO (17:54)
[2024-10-03 18:09] VITALS: BP 133/85
== END 2024-10-03 18:14 | disposition home or self-care (01) ==
LOC: ED 14:20
PROVIDERS: Family Medicine
DX: K21.9 Gastro-esophageal reflux disease without esophagitis (principal); F41.9 Anxiety disorder, unspecified; E28.2 Polycystic ovarian syndrome; F95.2 Tourette's disorder; Z20.822 Contact with and (suspected) exposure to COVID-19
CPT/HCPCS: J2405; J2470; Q9967